=== PATIENT | male | born 1990 | race Asian ===

== ENCOUNTER → 2016-12-22 | Outpatient (CLI) | payer OTHER ==
[~2016-12-22] MED LIST: CONRAY-43 43% 50ML VIAL (Q9960) As Ordered ONE
--- NOTE | 2016-12-22 09:24 | REP ---
INJECTION PROCEDURE FOR MR ARTHROGRAPHY RIGHT SHOULDER: HISTORY: Right shoulder pain. PROCEDURE: The patient was interviewed and informed consent was obtained. The patient was placed supine on the fluoroscopy table. Patient safety time-out was articulated and agreed to. The anterior aspect of the right shoulder was marked, prepped and draped in the usual fashion. Utilizing aseptic precautions and 1% lidocaine for local anesthetic, a 3-1/2 inch 22 gauge needle was advanced into the right glenohumeral articulation using fluoroscopic guidance without technical difficulty. Intra-articular needle position was confirmed by the injection of 1/2 ml of Conray-43. This was followed by the injection of 14 mL of a 20 mL sterile saline solution to which 0.15 mL of gadolinium was added. The patient tolerated the injection procedure well. Fluoroscopy time was 13 seconds. IMPRESSION: Injection procedure for MR arthrography right shoulder. Signed by Arya Shelley MD 12/22/2016 05:35 P
--- NOTE | 2016-12-22 11:07 | REP ---
MR ARTHROGRAM OF THE RIGHT SHOULDER: TECHNIQUE: Axial T2 fat sat, coronal oblique T1, T2 fat sat, post arthrogram axial T1 fat sat, proton density, coronal oblique T1 fat sat, T2 sat, sagittal oblique T2 fat sat, ABER T1 fat sat. Rotator cuff tendons demonstrate no abnormal signal. There is no evidence of rotator cuff tendon tear. The acromioclavicular joint does not demonstrate significant hypertrophic degenerative change. The acromion is not hooked in shape. Biceps tendon is within the bicipital groove with no tenosynovitis. There is no Hill-Sachs deformity. No abnormal signal is seen in the deltoid muscle. Biceps labral complex is intact. There is a tear of the posterior labrum. There is a lobulated adjacent paralabral cyst which measures 2.4 x 1.0 x 1.8 cm along the posterior bony glenoid. There is no bone marrow edema or occult fracture. There is a tiny subchondral cyst in the humeral head superolaterally. There is no joint effusion. IMPRESSION: Posterior labral tear with adjacent large posterior paralabral cyst. Signed by Tulio Sow MD 12/22/2016 04:50 P
== END ==
LOC: M RADPRO 06:39 → EDSEX 07:30
PROVIDERS: ATTEND Physician Assistant
DX: M71.311 Other bursal cyst, right shoulder (principal); M75.91 Shoulder lesion, unspecified, right shoulder
CPT/HCPCS: 23350; 73040; 73223; A9576; Q9960